=== PATIENT | female | born 1980 ===

== ENCOUNTER → 2020-10-24 12:10 | Outpatient (CLI) | payer OTHER, SELFPAY ==
[2020-10-24 19:04] LABS: Add Manual Diff / Slide Review NO; Basophils Absolute Auto 0 /uL (0-100); Basophils Percent Auto 0.8 % (0-2); Eosinophils Absolute Auto 0 /uL (0-450); Eosinophils Percent Auto 0.6 % (2-4); Hematocrit 42.4 % (36-46); Hemoglobin 14.4 g/dL (12.0-16.0); Lymphocytes Absolute Auto 1500 /uL (1100-4500); Lymphocytes Percent Auto 41.7 % (25-40); Mean Corpuscular Volume 96.9 fL (80-100); Monocytes Absolute Auto 300 /uL (0-900); Monocytes Percent Auto 9.3 % (3-14); Neutrophils Absolute Auto 1800 /uL (1500-7000); Neutrophils Percent Auto 47.6 % (50-75); Platelet Count 234 X10^3/uL (150-400); Red Blood Cell Count 4.38 X10^6/uL (4.0-5.2); White Blood Cell Count 3.7 X10^3/uL (4.5-11.0)
[2020-10-28 12:53] LABS: Zinc,RBC 1306 ug/dL (878-1660)
== END ==
PROVIDERS: PCP Family Medicine; Visit Provider Naturopath
DX: D72.819 Decreased white blood cell count, unspecified (principal); R53.82 Chronic fatigue, unspecified; R53.83 Other fatigue
CPT/HCPCS: 82525; 84630; 85025

== ENCOUNTER → 2020-11-18 10:32 | Outpatient (CLI) | payer OTHER, SELFPAY | PROVIDERS: PCP Family Medicine; Visit Provider Family Medicine | DX: N89.8 Other specified noninflammatory disorders of vagina (principal) | CPT/HCPCS: 87070; 87077; 87205; 87210 ==

== ENCOUNTER → 2020-12-15 12:32 | Outpatient (CLI) | payer OTHER, SELFPAY ==
[2020-12-15 20:45] LABS: Hematocrit 41.5 % (36-46); Hemoglobin 14.1 g/dL (12.0-16.0); Mean Corpuscular HGB Conc 33.9 % (30-36); Mean Corpuscular Hemoglobin 32.8 PG (26-34); Mean Corpuscular Volume 96.7 fL (80-100); Platelet Count 221 X10^3/uL (150-400); Red Blood Cell Count 4.29 X10^6/uL (4.0-5.2); Red Cell Distribution Width 12.9 % (11.6-14.8); White Blood Cell Count 3.2 X10^3/uL (4.5-11.0)
[2020-12-15 20:53] LABS: High Sensitivity CRP - Cardiac < 0.3 mg/L (1.0-3.0)
[2020-12-15 21:09] LABS: Erythrocyte Sedimentation Rate 6 MM/HR (0-20); Free T3, Triiodothyronine Free 4.03 pg/mL (2.77-5.27); Free T4, Direct Thyroxine 1.15 ng/dL (0.78-2.19)
[2020-12-15 21:10] LABS: Progesterone, Total 5.22 ng/mL
[2020-12-15 21:26] LABS: Cortisol AM (Before 10AM) 10.6 ug/dL (4.46-22.7); Estradiol, Total 36.9 pg/mL; Thyroid Stimulating Hormone 1.02 uIU/mL (0.47-4.68)
[2020-12-15 21:30] LABS: Neutrophils Absolute Manual 1664 /uL (3000-5900); Total Cells Counted 100
[2020-12-15 21:31] LABS: RBC Morphology Normal Morphology
[2020-12-16 22:36] LABS: Thyroid Peroxidase Antibodies <9 IU/mL (0-34)
== END ==
PROVIDERS: PCP Family Medicine; Referring Provider Naturopath; Visit Provider Naturopath
DX: R53.83 Other fatigue (principal)
CPT/HCPCS: 82533; 82627; 82670; 84144; 84439; 84443; 84481; 85025; 85651; 86140; 86376